=== PATIENT | female | born 1990 | race Two or more races ===

== ENCOUNTER 2016-12-14 13:34 | Emergency (ER) | payer OTHER ==
[~2016-12-14] VITALS: Ht 165.1 cm; Wt 60.1 kg
[2016-12-14] MEDS ORDERED: SODIUM CHLORIDE FLUSH 10ML SYR IVF ONE (14:30)
[2016-12-14 15:03] LABS: HEMATOCRIT 43.6 % (34.6-47.8); HEMOGLOBIN 14.5 g/dL (11.7-16.4); WHITE BLOOD COUNT 12.6 x10^3/uL (3.4-10)
[2016-12-14 15:08] LABS: BLOOD UREA NITROGEN 13 mg/dL (7-18)
[2016-12-14 15:15] LABS: PATH.CAST-FLAG NOT PRESENT; SPERM-FLAG NOT PRESENT; SRC-FLAG NOT PRESENT; XTAL-FLAG NOT PRESENT; YLC-FLAG NOT PRESENT
[2016-12-14 15:53] VITALS: BP 102/63
[2016-12-14] MEDS ORDERED: RHOGAM FROM BLOOD BANK 1 NOTE EA IM/IV ONE (16:00)
[2016-12-14] MEDS ORDERED: ACETAMINOPHEN 325 MG TABLET ONE (16:46)
[2016-12-14] MEDS ORDERED: ACETAMINOPHEN 325 MG TABLET PO ONE (17:00)
== END 2016-12-14 16:48 | disposition home or self-care (01) ==
LOC: ED 16:31
DX: O20.0 Threatened abortion (principal); Z3A.01 Less than 8 weeks gestation of pregnancy; Z88.0 Allergy status to penicillin; Z88.1 Allergy status to other antibiotic agents
CPT/HCPCS: 36415; 76801; 80048; 81001; 82040; 84702; 85025; 86850; 86900; 87086; 96372; 99285; J2790